=== PATIENT | female | born 1945 ===

== ENCOUNTER 2021-01-30 06:00 | Outpatient (RCR) | payer MEDICARE, SELFPAY | END 2021-02-28 23:59 | disposition home or self-care (01) | LOC: WPT 06:00 | PROVIDERS: Referring Provider Physician Assistant Medical; Visit Provider Physician Assistant Medical | DX: M54.32 Sciatica, left side (principal) | CPT/HCPCS: 97110; 97162 ==

== ENCOUNTER 2021-03-01 06:00 | Outpatient (RCR) | payer MEDICARE, SELFPAY | END 2021-03-31 23:59 | disposition home or self-care (01) | LOC: WPT 06:00 | PROVIDERS: Referring Provider Physician Assistant Medical; Visit Provider Physician Assistant Medical | DX: M54.32 Sciatica, left side (principal) | CPT/HCPCS: 97110 ==

== ENCOUNTER → 2023-03-20 13:05 | Outpatient (BNVA) | payer MEDICARE, SELFPAY | PROVIDERS: Visit Provider Nurse Practitioner Family | DX: D04.39 Carcinoma in situ of skin of other parts of face (principal); D18.01 Hemangioma of skin and subcutaneous tissue; L81.4 Other melanin hyperpigmentation; L85.3 Xerosis cutis; L57.8 Other skin changes due to chronic exposure to nonionizing radiation; Z80.8 Family history of malignant neoplasm of other organs or systems; L82.1 Other seborrheic keratosis; M34.83 Systemic sclerosis with polyneuropathy; L57.0 Actinic keratosis | CPT/HCPCS: 11102; 11103; 17000; 17003; 99203 ==

== ENCOUNTER 2023-07-03 16:10 | Outpatient (CLI) | payer MEDICARE, SELFPAY | END 2023-07-03 16:11 | disposition home or self-care (01) | PROVIDERS: Visit Provider Family Medicine | DX: Z01.89 Encounter for other specified special examinations (principal) | CPT/HCPCS: 87045; 87427; 87449 ==

== ENCOUNTER 2023-07-08 07:44 | Outpatient (CLI) | payer MEDICARE, SELFPAY ==
--- NOTE | 2023-07-08 08:10 | US_ITS ---
WS: [id number] Complete ABDOMINAL ULTRASOUND HISTORY: ACUTE DIARRHEA/RAMAN COLORED STOOLS/LOWER ABD PAIN COMPARISON: None available. Liver: 14.4 cm in length. Normal size liver and echogenicity. No bile duct dilatation or mass. Portal Vein: Normal hepatopetal flow with monophasic waveform. Gallbladder: Normally distended gallbladder with no stones or wall thickening. Polyp along the nondep endent wall of the gallbladder measures 5 mm CBD: 0.3 cm Pancreas: Normal size and echogenicity. Right kidney: 7.8 cm x 4.1 x 3.7 cm. Cortex: 0.8 cm. Small mildly atrophic kidney. No obstruction. No mass. Left kidney: 9.0 cm x 3.1 cm x 4.3 cm. Cortex: 1.1 cm. Normal size and echogenicity. No hydronephrosis or mass. Spleen: 10.8 cm in length. Normal. Aorta and IVC: Mild atherosclerosis aorta. No aneurysm. Impression: 1. No cholelithiasis. Small gallbladder polyp measuring 5 mm. 2. No bile duct dilatation. 3. Mild atrophy RIGHT kidney. No renal obstruction.
== END 2023-07-08 07:45 | disposition home or self-care (01) ==
LOC: RAD 07:44
PROVIDERS: PCP Family Medicine; Visit Provider Registered Nurse
DX: R19.7 Diarrhea, unspecified (principal); R10.30 Lower abdominal pain, unspecified; K82.4 Cholesterolosis of gallbladder
CPT/HCPCS: 76700